=== PATIENT | female | born 2000 | race Caucasian/White ===

== ENCOUNTER 2018-07-22 20:37 | Emergency (ER) | payer OTHER ==
--- NOTE | 2018-07-22 21:20 | UC ---
Head Injury HPI - HPI Summary HPI Summary: Pt presents with c/o left side nasal pain and epistaxis, left side facial cheek pain s/p "running into tree" after being dragged by pet dog (1 .5 year old rottweiler breed) for a few feet while walking it. Pt denies ANN, LOC, nausea, or vomiting. injury occurred at 0 this evening. - History Of Current Complaint Chief Complaint: UCHeadInjury Stated Complaint: FACE INJ Time Seen by Provider: 07/22/18 20:50 Hx Obtained From: Patient Hx Last Menstrual Period: 07/08/18 ?: No Onset/Duration: Sudden Onset, Still Present Severity Currently: Moderate Severity Initially: Moderate Pain Intensity: 5 Character: Dull Aggravating Factor(s): Other - touch Alleviating Factor(s): Nothing Associated Signs And Symptoms: Positive: Epistaxis - Risk Factors SDH Risk Factor: Negative - Allergies/Home Medications Allergies/Adverse Reactions: Allergies Allergy/AdvReac Type Severity Reaction Status Date / Time No Known Allergies Allergy Verified 07/22/18 20:49 Home Medications: Home Medications Desogestrel-Ethinyl Estradiol [Enskyce 28 Tablet] 1 each PO DAILY 07/22/18 [ History Confirmed 07/22/18] PMH/Surg Hx/FS Hx/Imm Hx Previously Healthy: Yes - Surgical History Surgical History: Yes Surgery Procedure, Year, and Place: T & A - Family History Known Family History: Positive: Cardiac Disease - Social History Occupation: Student Lives: With Family Alcohol Use: Occasionally Substance Use Type: None Smoking Status (MU): Never Smoked Tobacco Have You Smoked in the Last Year: No - Immunization History Vaccination Up to Date: Yes Review of Systems All Other Systems Reviewed And Are Negative: Yes Constitutional: Positive: Negative Skin: Positive: Bruising - left side nose Eyes: Positive: Negative ENT: Positive: Epistaxis, Other - left side maxillary pain, left side nasal swelling Respiratory: Positive: Negative Cardiovascular: Positive: Negative Gastrointestinal: Positive: Negative Genitourinary: Positive: Negative Motor: Positive: Negative Neurovascular: Positive: Negative Musculoskeletal: Positive: Arthralgia, Edema, Myalgia Neurological: Positive: Headache Psychological: Positive: Negative Is Patient Immunocompromised?: No Physical Exam Triage Information Reviewed: Yes Appearance: Pain Distress Vital Signs: Initial Vital Signs Temp 98.0 F 07/22/18 20:45 Pulse 68 07/22/18 20:45 Resp 18 07/22/18 20:45 BP 142/84 07/22/18 20:45 Pulse Ox 100 07/22/18 20:45 Vital Signs Reviewed: Yes Eye Exam: Normal ENT: Positive: Other - left side nasal swelling, epstaxis, left maxillary tenderness, Dental Exam: Normal Neck exam: Normal Respiratory Exam: Normal Respiratory: Positive: No respiratory distress Musculoskeletal Exam: Normal Neurological Exam: Normal Psychological Exam: Normal Skin Exam: Other - left side nasal bruising. Diagnostics - Radiology No standard instances Radiology Interpretation Completed By: Radiologist - vRAD: no acute fracture. Head Injury Course/Dx - Course Course Of Treatment: I discussed radiologist report with pt and instructed pt to folow upw ith PCP as soon as possible or if symptoms worsen to seek care at closest ER. - Differential Dx/Diagnosis Differential Diagnosis/HQI/PQRI: Concussion Without LOC, Hematoma, Nasal Fracture, Orbital Fracture Provider Diagnosis: Nose injury, Concussion, Facial injury Discharge - Sign-Out/Discharge Documenting (check all that apply): Patient Departure All imaging exams completed and their final reports reviewed: Yes - Discharge Plan Condition: Stable Disposition: HOME Patient Education Materials: Nosebleed (ED), Concussion (ED), Head Injury (ED) Referrals: Carol Ann Carbone MD [Primary Care Provider] - As Soon As Possible Additional Instructions: PLEASE FOLLOW UP WITH PCP SOON POSSIBLE. IF SYMPTOMS WORSEN, PLEASE SEEK CARE AT CLOSEST EMERGENCY ROOM SOON POSSIBLE. - Billing Disposition and Condition Condition: STABLE Disposition: Home - Attestation Statements Provider Attestation: Per institutional requirements, I have reviewed the chart, however, I was not consulted specifically or made aware of this patient by the midlevel provider. I did not personally evaluate, interact with , or disposition this patient.
[2018-07-22] MEDS ORDERED: Acetaminophen TAB* 325 MG PO ONE (22:05)
== END 2018-07-22 22:12 | disposition home or self-care (01) ==
LOC: UCCORT 20:37
DX: S06.0X0A Concussion without loss of consciousness, initial encounter (principal); S09.92XA Unspecified injury of nose, initial encounter; S09.93XA Unspecified injury of face, initial encounter; W22.09XA Striking against other stationary object, initial encounter; Y93.K1 Activity, walking an animal; Y92.9 Unspecified place or not applicable
CPT/HCPCS: 70486; 99202; A9270-GY; G0463

== ENCOUNTER 2019-04-23 15:55 | Emergency (ER) | payer BC, OTHER ==
--- NOTE | 2019-04-23 16:08 | UC ---
Throat Pain/Nasal Merlin HPI - HPI Summary HPI Summary: 19-year-old female with cold symptoms for the past 8-9 days. She continues to have a mild fever and has coughed up green sputum today. No history of asthma, she is a nonsmoker. She is a college student but takes online classes and does not live on-campus. - History of Current Complaint Stated Complaint: ST Time Seen by Provider: 04/23/19 16:06 Hx Obtained From: Patient Hx Last Menstrual Period: 07/08/18 ?: No Onset/Duration: Gradual Onset Severity: Mild Cough: Sputum Appears Associated Signs & Symptoms: Positive: Nasal Discharge, Fever - Greenish sputum. - Allergies/Home Medications Allergies/Adverse Reactions: Allergies Allergy/AdvReac Type Severity Reaction Status Date / Time No Known Allergies Allergy Verified 04/23/19 16:13 PMH/Surg Hx/FS Hx/Imm Hx Previously Healthy: Yes - Surgical History Surgical History: Yes Surgery Procedure, Year, and Place: T & A - Family History Known Family History: Positive: Cardiac Disease - Social History Occupation: Student Lives: With Family Alcohol Use: Occasionally Substance Use Type: None Smoking Status (MU): Never Smoked Tobacco Have You Smoked in the Last Year: No - Immunization History Vaccination Up to Date: Yes Review of Systems All Other Systems Reviewed And Are Negative: Yes Constitutional: Positive: Fever ENT: Positive: Sore Throat, Nasal Discharge, Sinus Congestion Respiratory: Positive: Shortness Of Breath - Occasional shortness of breath with exertion., Cough - Productive cough of greenish sputum, which she thinks is more sinus drainage. Is Patient Immunocompromised?: No Physical Exam Triage Information Reviewed: Yes Appearance: Well-Appearing, No Pain Distress, Well-Nourished Vital Signs Reviewed: Yes Eyes: Positive: Conjunctiva Clear ENT: Positive: Hearing grossly normal, Pharynx normal, Nasal congestion, Nasal drainage - Clear nasal coryza., TMs normal, Uvula midline Neck: Positive: Supple, Nontender, Enlarged Nodes @ - Right tonsillar lymph node enlargement. Respiratory: Positive: No respiratory distress, No accessory muscle use, Rhonchi - Mild scattered rhonchi. Cardiovascular: Positive: RRR, No Murmur, Pulses Normal, Brisk Capillary Refill Musculoskeletal Exam: Normal Neurological Exam: Normal Psychological Exam: Normal Skin Exam: Normal Throat Pain/Nasal Course/Dx - Course Course Of Treatment: Rapid strep test: Negative Chest x-ray:FINDINGS: The heart is within normal limits in size. Mediastinal and hilar contours appear within normal limits. The lungs are clear. No pleural effusion is seen. There is a bvap-mg-dyejwyya dorsal lumbar scoliosis convex toward the left side. IMPRESSION: NO EVIDENCE FOR ACTIVE CARDIOPULMONARY DISEASE - Differential Dx/Diagnosis Provider Diagnosis: Sinusitis Discharge ED - Sign-Out/Discharge Documenting (check all that apply): Patient Departure All imaging exams completed and their final reports reviewed: Yes - Discharge Plan Condition: Good Disposition: HOME Prescriptions: Amoxicillin PO (*) [Amoxicillin 875 MG (*)] 875 mg PO BID 10 Days #20 tab Patient Education Materials: Sinusitis (ED) Referrals: Carol Ann Carbone MD [Primary Care Provider] - Additional Instructions: Increase fluids, mcjy-aiz-bhxkzju cold medicine. Use an alternate method of control for one month while you are taking the antibiotic. - Billing Disposition and Condition Condition: GOOD Disposition: Home
[2019-04-23 16:13] VITALS: BP 121/77
== END 2019-04-23 17:05 | disposition home or self-care (01) ==
LOC: UCCORT 15:55
DX: J32.9 Chronic sinusitis, unspecified (principal); R05 Cough; R50.9 Fever, unspecified
CPT/HCPCS: 71046; 87651; 99212; G0463

== ENCOUNTER 2019-05-21 12:59 | Emergency (ER) | payer BC ==
--- OUTSIDE RECORDS SUMMARY | 2019-05-21 13:08 | XMS REPORT | Continuity of Care Document ---
:2000 External Reference #:[id number] Author Name Carol Ann Carbone MD Address [address] [place] [id number] Problems Active Problems Provider Date No current problems or disability Onset: 05/15/2011 Social History Type Date Description Comments Sex Unknown ETOH Use Denies alcohol use Tobacco Use Start: Unknown Patient has never smoked Recreational Drug Use Denies Drug Use Smoking Status Reviewed: 09/15/18 Patient has never smoked Exercise Type/Frequency Exercises sporadically Allergies, Adverse Reactions, Alerts Active Allergies Reaction Severity Comments Date NKDA 10/03/2014 MMR Vaccine 10/03/2014 Medications Active Medications SIG Qnty Indications Ordering Provider Date Benzonatate 1 by mouth three 30caps R05 Carol Ann Carbone, 04/27/2019 200mg times a day as MD Capsules needed Desogestrel-Ethinyl take 1 tablet by 28tabs Z00.121 Carol Ann Carbone, Estradiol mouth every day 0.15-30mg-mcg Tablets N94.4 Amoxicillin 1 by mouth twice a day x 10 Unknown 875mg Tablets days Immunizations CPT Code Status Date Vaccine Reaction Lot # [id number] Given 09/15/2018 Tdap (Adacel) Ages 7 And [id number] Above Only 01546 Given 10/01/2016 Meningococcal [id number] B(Bexsero)protn otrMembran Vesicle Vccn 2 [place] sche 97[address] Given 07/29/2016 Meningococcal Im inj completed, Pt [id number] B(Bexsero)protn otrMembran tolerated well Vesicle Vccn 2 [place] sche 67036 Given 07/21/2015 Menactra/Menveo [id number] Meningococcal Vaccine 81996 Given 07/21/2015 Influenza Vaccine [id number] Quadrivalent, Live For Intranasal Use 34754 Given 07/12/2014 Influenza Virus Vaccine,Quadrivalent,Split, Preserv Free, 0.5mL,Im 62561 Given 12/31/2010 HPV Vaccine (Gardasil) 3 Dose Schedule 21689 Given 08/27/2010 HPV Vaccine (Gardasil) 3 Dose Schedule 95980 Given 06/25/2010 Menactra/Menveo Meningococcal Vaccine 55877 Given 06/25/2010 Influenza Intranasal Vaccine, Live Virus 06017 Given 06/25/2010 HPV Vaccine (Gardasil) 3 MONITORED FOR 15 Dose Schedule MINUTES AND RELEASED; DOING FINE 86775 Given 07/20/2009 Afluria Or Fluvirin Flu Vac Intramuscular 96492 Given 04/11/2009 Tdap (Adacel) Ages 7 And Above Only 15892 Given 2003 IPV / Poliomyelitis Immunization 27617 Given 2003 DTaP Immunization 7 Yrs & Younger 86104 Given 04/06/2002 Varicella (Chicken Pox) Immunization 78963 Given 05/16/2000 Varicella (Chicken Pox) Immunization 52631 Given 05/16/2000 Hib HbOC Conjugate 4 Dose Schedule 36644 Given 05/16/2000 DTaP Immunization 7 Yrs & Younger 72345 Given 09/06/1999 MMR Virus Immunization 54636 Given 01/02/1999 Rotavirus Vaccine, Tetravalent Live, For Oral Use 3 Dose RICH 93116 Given 1998 Hepatitis B Vac Ped/Adolescent 3 Dose Schedule 04973 Given 1998 IPV / Poliomyelitis Immunization 86698 Given 1998 DTaP Immunization 7 Yrs & Younger 27526 Given 1998 Rotavirus Vaccine, Tetravalent Live, For Oral Use 3 Dose RICH 86952 Given 1998 IPV / Poliomyelitis Immunization 64321 Given 1998 DTaP Immunization 7 Yrs & Younger 08340 Given 1998 Hib/Hep B Vaccine Combination 11645 Given 1998 IPV / Poliomyelitis Immunization 59078 Given 1998 DTaP Immunization 7 Yrs & Younger 02213 Given 1998 Hib/Hep B Vaccine Combination [id number] Refused 04/27/2019 Flu Vaccine NOS aware can get at [pharmacy Q2039 Refused 09/15/2018 Flu Vaccine NOS 01756 Refused 07/30/2017 Influenza Virus Vaccine,Quadrivalent,Split,Pres erv Free, 0.5mL,Im Q2039 Refused 07/30/2017 Flu Vaccine NOS Vital Signs Date Vital Result Comment 04/27/2019 3:49pm Body Temperature 98.9 F Weight 114.00 lb Heart Rate 74 /min BP Systolic 122 mmHg BP Diastolic 64 mmHg Respiratory Rate 18 /min Height 63.75 inches 5'3.75" O2 % BldC Oximetry 98 % ra BMI (Body Mass Index) 19.7 kg/m2 09/15/2018 2:03pm Weight 110.00 lb Heart Rate 68 /min BP Systolic 100 mmHg BP Diastolic 72 mmHg Respiratory Rate 14 /min Height 63.75 inches 5'3.75" BMI (Body Mass Index) 19.0 kg/m2 Results Test Date Facility Test Result H/L Range Note Laboratory test 04/23/2019 [facility] Rapid Strep Negative Negative 1 finding Molecular 1 Installment Agent: [id number] Procedures Date Code Description Status 04/27/2019 82727 Measure Blood Oxygen Level Single Determination Completed Medical Devices Description No Information Available Encounters Description No Information Available Assessments Date Code Description Provider 04/27/2019 J01.90 Acute sinusitis, unspecified Carol Ann Carbone MD 04/27/2019 R05 Cough Carol Ann Carbone MD 04/27/2019 Z68.1 Body mass index (BMI) 19.9 or less, adult Carol Ann Carbone MD Plan of Treatment Future Appointment(s):09/17/2019 1:30 pm - Carol Ann [facility] MD at [facility]2018 - Carol Ann Carbone MDJ01.90 Acute sinusitis, unspecifiedComments:suspect acute sinusitis given history and exam . Advised pt could still be just viral infection in which case abx won't help, or antibiotics will help the bacterial infection but the viral symptoms ofcongestion and cough will continue until resolved with natural healing. Rx given, reviewed side effects. Call if develops new sxs or concerns. reviewed gi, rash side effects. call if not better in 3-4 daystry otc analgesics as needed for pain and dizziness push fluids take probiotic pills or/and eat yogurt daily recommend nasal saline flushes at least twice daily, may use more often and nasal steroid once a day to followconsider afrin otc as needed, don't use routinely for any longer than 3 daysFollow up:followup as [id number] CoughNew Medication:Benzonatate 200 mg - 1 by mouth three times a day as neededComments:cough. Advised likely viral process. Lungs and exam are reassuringly normal. With no fever, sputum or sob, not likely pneumonia. Ok to observe. Call if develops any of those sxs or other concerns. Call for increased productive sputum, worsening shortness of breath, temp 101+, or any concerns. Antibiotics not helpful for viruses.Z68.1 Body mass index (BMI) 19.9 or less, adultComments:low bmicautioned risks for illness, injury, fractures, fallsrecommend weight gain 5# and regular exercise Functional Status Description No Information Available Mental Status Description No Information Available Referrals Description No Information Available
[2019-05-21 13:48] VITALS: BP 108/58
--- NOTE | 2019-05-21 14:05 | UC ---
Throat Pain/Nasal Merlin HPI - HPI Summary HPI Summary: 19 yo treated with amoxicillin 875 mg twice daily for 10 days for diagnosis of sinusitis, improved, but now has recurrent symptoms. Negative CXR on 04/23/19. Symptoms did not resolve, and she has persistent sinus pain and drainage, along with cough. Over the past 3 days has felt worse, and does not have increased nodes in the cervical chains than in the past. No past hx of mono. - History of Current Complaint Chief Complaint: UCGeneralIllness Stated Complaint: SINUS INFECT Time Seen by Provider: 05/21/19 13:45 Hx Obtained From: Patient Hx Last Menstrual Period: last week ?: No Onset/Duration: Gradual Onset, Lasting Weeks - 4 Severity: Moderate Pain Intensity: 0 Cough: Nonproductive Associated Signs & Symptoms: Positive: Dysphagia, Hoarseness, Sinus Discomfort - Epiglottits Risk Factors Epiglottis Risk Factors: Negative - Allergies/Home Medications Allergies/Adverse Reactions: Allergies Allergy/AdvReac Type Severity Reaction Status Date / Time No Known Allergies Allergy Verified 05/21/19 13:48 PMH/Surg Hx/FS Hx/Imm Hx Previously Healthy: Yes - Surgical History Surgical History: Yes Surgery Procedure, Year, and Place: T & A - Family History Known Family History: Positive: Cardiac Disease - Social History Occupation: Employed Full-time Lives: With Family Alcohol Use: Occasionally Substance Use Type: None Smoking Status (MU): Never Smoked Tobacco Have You Smoked in the Last Year: No - Immunization History Vaccination Up to Date: Yes Review of Systems All Other Systems Reviewed And Are Negative: Yes Constitutional: Positive: Fatigue - has been increasing over time. Skin: Positive: Negative Eyes: Positive: Negative ENT: Positive: Sore Throat, Ear Ache, Sinus Congestion Respiratory: Positive: Shortness Of Breath - off and on, Cough Gastrointestinal: Positive: Abdominal Pain - last month had LUQ pain. Genitourinary: Positive: Negative Motor: Positive: Negative Neurovascular: Positive: Negative Musculoskeletal: Positive: Negative Neurological: Positive: Headache - in frontal sinuses and behind the right ear. Is Patient Immunocompromised?: No Physical Exam Triage Information Reviewed: Yes Appearance: No Pain Distress, Ill-Appearing - looks pale and fatigued., Thin Vital Signs: Initial Vital Signs Temp 97.9 F 05/21/19 13:42 Pulse 71 05/21/19 13:42 Resp 18 05/21/19 13:42 BP 108/58 05/21/19 13:42 Pulse Ox 100 05/21/19 13:42 Eyes: Positive: Conjunctiva Clear ENT: Positive: Pharyngeal erythema, TMs normal. Negative: Tonsillar swelling, Tonsillar exudate Neck: Positive: Supple, Nontender, Enlarged Nodes @ - tonsillar nodes enlarged and tender, but has bilateral posterior cervical and anterior cervical adenopathy-->tender Respiratory: Positive: Lungs clear, Normal breath sounds Cardiovascular: Positive: RRR, No Murmur Abdomen Description: Positive: Nontender, No Organomegaly, Soft. Negative: Splenomegaly Musculoskeletal Exam: Normal Neurological: Positive: Alert, Muscle Tone Normal Psychological Exam: Normal Skin Exam: Normal Throat Pain/Nasal Course/Dx - Course Course Of Treatment: CBC and monospot ordered. Begin doxycycline for treatment. - Differential Dx/Diagnosis Differential Diagnosis/HQI/PQRI: Pharyngitis, Sinusitis, Tonsillitis Provider Diagnosis: Sinusitis, Lymphadenopathy of head and neck Discharge ED - Sign-Out/Discharge Documenting (check all that apply): Patient Departure All imaging exams completed and their final reports reviewed: No Studies - Discharge Plan Condition: Stable Disposition: HOME Prescriptions: DOXYcycline CAP(*) [DOXYcycline 100MG CAP(*)] 100 mg PO BID #20 cap Patient Education Materials: Sinusitis (ED), Lymphadenopathy (ED) Forms: *Work Release Referrals: Carol Ann Carbone MD [Primary Care Provider] - Additional Instructions: A blood count and test for mono have been done due to the increase in lymph nodes in the neck. Results will be available tomorrow. You have been prescribed doxycycline for treatment of persistent sinus infection. Please ensure that you use back up control because the antibiotic can affect your control. Doxycycline can be taken with food, but no dairy products within 2 hours of the dose. - Billing Disposition and Condition Condition: STABLE Disposition: Home
[2019-05-21 19:37] LABS: ABS Basophils 0.1 10^3/ul (0-0.2); ABS Eosinophils 0.1 10^3/ul (0-0.6); ABS Lymphocytes 2.2 10^3/ul (1.0-4.8); ABS Monocytes 0.4 10^3/ul (0-0.8); ABS Neutrophils 6.7 10^3/ul (1.5-7.7); Hematocrit 38 % (35-47); Lymphocyte % 22.9 %; Mean Corpuscular HGB Conc 35 g/dL (31-36); Mean Corpuscular Hemoglobin 31 pg (27-31); Mean Corpuscular Volume 91 fL (80-97); Nucleated Red Blood Cells % 0.1; Platelet Count 266 10^3/uL (150-450); Red Blood Count 4.17 10^6 /uL (3.70-4.87); Red Cell Distribution Width 13 % (10-15); White Blood Count 9.4 10^3/uL (3.5-10.8)
--- NOTE | 2019-05-22 07:16 | UC ---
- Progress Note Progress Note: CBC with diff wnl mono neg no change Course/Dx - Diagnoses Provider Diagnoses: Sinusitis, Lymphadenopathy of head and neck Discharge ED - Sign-Out/Discharge Documenting (check all that apply): Post-Discharge Follow Up All imaging exams completed and their final reports reviewed: No Studies - Discharge Plan Condition: Stable Disposition: HOME Prescriptions: DOXYcycline CAP(*) [DOXYcycline 100MG CAP(*)] 100 mg PO BID #20 cap Patient Education Materials: Sinusitis (ED), Lymphadenopathy (ED) Forms: *Work Release Referrals: Carol Ann Carbone MD [Primary Care Provider] - Additional Instructions: A blood count and test for mono have been done due to the increase in lymph nodes in the neck. Results will be available tomorrow. You have been prescribed doxycycline for treatment of persistent sinus infection. Please ensure that you use back up control because the antibiotic can affect your control. Doxycycline can be taken with food, but no dairy products within 2 hours of the dose. - Billing Disposition and Condition Condition: STABLE Disposition: Home
[2019-05-24 15:14] LABS: EBV Capsid Ag IgG Ab Positive (Negative); EBV Capsid Ag IgM Ab Negative (Negative); Epstein-Barr Nuclear Antigen Positive (Negative)
== END 2019-05-21 14:28 | disposition home or self-care (01) ==
LOC: UCCORT 12:59
DX: J32.9 Chronic sinusitis, unspecified (principal); R05 Cough; R53.83 Other fatigue; R59.0 Localized enlarged lymph nodes; H92.09 Otalgia, unspecified ear
CPT/HCPCS: 36415; 85025; 86308; 86664; 86665; 99212; G0463